=== PATIENT | female | born 1950 | race Caucasian/White ===

== ENCOUNTER 2017-10-20 15:21 | Outpatient (CLI) | payer OTHER ==
[2017-10-20 17:29] LABS: ALBUMIN 4.1 g/dL (3.2-5.5); ALBUMIN/GLOBULIN RATIO 1.4 (1.0-2.2); BILIRUBIN,TOTAL 0.9 mg/dL (0.2-1.0); CALCIUM 9.1 mg/dL (8.5-10.3); CREATININE 0.7 mg/dL (0.4-1.0); TOTAL PROTEIN 7.1 g/dL (6.7-8.2)
[2017-10-20 17:56] LABS: BASOPHILS % (AUTO) 0.7 %; EOSINOPHILS # (AUTO) 0.2 10^3/uL (0.0-0.7); EOSINOPHILS % (AUTO) 2.4 %; HGB - HEMOGLOBIN 13.8 g/dL (12.0-16.0); LYMPHOCYTES # (AUTO) 1.4 10^3/uL (1.5-3.5); LYMPHOCYTES % (AUTO) 19.9 %; MEAN CORPUSCULAR HEMOGLOBIN 29.5 pg (27.0-31.0); MEAN CORPUSCULAR HGB CONC 34.6 g/dL (32.0-36.0); MEAN CORPUSCULAR VOLUME 85.3 fL (81.0-99.0); MEAN PLATELET VOLUME 7.7 fL (7.9-10.8); MONOCYTES # (AUTO) 0.7 10^3/uL (0.0-1.0); MONOCYTES % (AUTO) 10.4 %; NEUTROPHILS # (AUTO) 4.7 10^3/uL (1.5-6.6); NEUTROPHILS % (AUTO) 66.6 %; PLT - PLATELET COUNT 183 10^3/uL (130-450); RED BLOOD COUNT 4.67 10^6/uL (4.20-5.40); WHITE BLOOD COUNT 7.1 x10^3/uL (4.8-10.8)
== END 2017-10-20 15:22 | disposition home or self-care (01) ==
LOC: LAB.F 15:21
PROVIDERS: ATTEND Family Medicine
DX: R19.7 Diarrhea, unspecified (principal)
CPT/HCPCS: 36415; 80053; 85025

== ENCOUNTER 2020-07-19 11:41 | Emergency (ER) | payer MEDICARE, OTHER ==
--- NOTE | 2020-07-19 12:19 | ED Physician Documentation ---
PD HPI HEENT - Stated complaint Stated Complaint: DIZZY - Chief complaint Chief Complaint: Heent - History obtained from History obtained from: Patient - History of Present Illness Timing - onset: How many days ago (2) Timing - duration: Days (2) Timing - details: Intermittant (has had 3 distinct episodes of vertigo with head movement (only moved slightly but abrupt to side). Each time occurred after taking a hot shower. Has had mild feeling of vertigo otherwise with movements. The distinct episodes were marked vertigo lasting 5-15 minutes. Better with head held still.) Location: Other (has had some mild congestion/runny nose. No feeling of ears plugged. No sinus pressure. [place] off balance when dizzy. No trouble walking once it stopped. Was able to manipulate mouse and keyboard normally while feeling dizzy. No focal weakness nor vision change.) Associated symptoms: Rhinorrhea. No: Fever, Facial swelling, Headache, Cough Similar symptoms before: Has not had sx before Recently seen: Not recently seen Review of Systems Constitutional: denies: Fever, Chills Eyes: denies: Decreased vision Ears: denies: Ear pain, Drainage/discharge Nose: reports: Rhinorrhea / runny nose. denies: Sinus pressure / pain Throat: denies: Sore throat Respiratory: denies: Cough Neurologic: denies: Focal weakness, Numbness, Near syncope, Altered mental status, Headache PD PAST MEDICAL HISTORY - Past Medical History Cardiovascular: None Respiratory: None Neuro: None Endocrine/Autoimmune: None - Present Medications Home Medications: Ambulatory Orders Medication Instructions Recorded Confirmed dexAMETHasone [Decadron] 4 mg PO DAILY #5 tablet 07/19/20 - Allergies Allergies/Adverse Reactions: Allergies Allergy/AdvReac Type Severity Reaction Status Date / Time No Known Drug Allergies Allergy Verified 07/19/20 11:57 PD ED PE NORMAL - Vitals Vital signs reviewed: Yes - General General: Alert and oriented X 3, No acute distress, Well developed/nourished - HEENT HEENT: PERRL, EOMI (mild nystagmus to the left. 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 ) Eye Opening: Spontaneous Motor: Obeys Commands Verbal: Oriented GCS Score: 15 Results - Vitals Vitals: Vital Signs - 24 hr 07/19/20 07/19/20 11:46 13:30 Temperature 36.7 C 36.7 C Heart Rate 66 64 Respiratory 15 16 Rate Blood Pressure 130/68 128/66 O2 Saturation 99 100 Oxygen O2 Source Room air PD MEDICAL DECISION MAKING - ED course Complexity details: considered differential (episodic vertigo triggered by small but abrupt head movement. Better rested. No cerebellar dysfunction otherwise. Has nystagmus to left. Seems peripheral. Likely otoliths but could be some labrynthitis/allergies.), d/w patient Departure - Departure Disposition: 01 Home, Self Care Clinical Impression: Positional vertigo Condition: Stable Record reviewed to determine appropriate education?: Yes Instructions: ED Vertigo Unspecified Prescriptions: dexAMETHasone [Decadron] 4 mg PO DAILY #5 tablet Comments: Your dizziness sounds related to inner ear problem. Most likely to have a small otolith that Ms. positions with the movement and causes the dizzy episode. However there may be some inflammation in the labyrinth instead with the symptoms just "below the radar" and happening at times. For that we can try dexamethasone anti-inflammatory daily for the next 4 to 5 days. Add meclizine if needed for symptomatic dizziness. Follow-up with your primary care/[facility] for follow-up with ENT specialist if your episodes have not resolved over the next several days. Discharge Date/Time: 07/19/20 13:30
[2020-07-19] MEDS ORDERED: CHERRY SYRUP 10 ML UDC PO ONE (13:08)
[2020-07-19] MEDS ORDERED: DEXAMETHASONE 10 MG/ML VIAL PO STA (13:08)
[2020-07-19 13:32] VITALS: BP 128/66
== END 2020-07-19 13:30 | disposition home or self-care (01) ==
LOC: ED 11:41
DX: H81.12 Benign paroxysmal vertigo, left ear (principal)
CPT/HCPCS: 99282; 99284; A9270

== ENCOUNTER 2021-07-16 09:40 | Emergency (ER) | payer MEDICARE ==
[2021-07-16 09:58] VITALS: BP 149/69
--- NOTE | 2021-07-16 12:45 | XRAY Report ---
PROCEDURE: Knee 4 View RT INDICATIONS: R knee pain, no injury TECHNIQUE: 4 views of the right knee(s) were acquired. COMPARISON: None. FINDINGS: Bones: No fractures or dislocations. No suspicious bony lesions. Tricompartment degenerative arthr itis, most notably in the medial compartment. There are somewhat bulky osteophytes medially. There is mild to moderate medial compartment joint space loss. Soft tissues: Moderate joint effusion. No suspicious soft tissue calcifications. IMPRESSION: 1. Moderate degenerative arthritis of the right knee. 2. Findings include a moderate knee joint effusion. Comment: If the patient is suspected of having undergone an internal derangement in addition to the d egenerative change, right knee MRI may be helpful. Reviewed by: Cecil Blue MD on 07/16/2021 12:44 PM PDT Approved by: Cecil Blue MD on 07/16/2021 12:44 PM PDT Station ID: [id number]
[2021-07-16] MEDS ORDERED: oxyCODONE 5 MG TABLET PO STA (13:06)
--- NOTE | 2021-07-16 13:08 | ED Physician Documentation ---
History of Present Illness - Stated complaint Stated Complaint: RT KNEE PX - Chief complaint Chief Complaint: Ext Problem - History obtained from History obtained from: Patient, Family - History of Present Illness Timing: Yesterday Pain level max: 8 Pain level now: 8 - Additonal information Additional information: Patient is a 70-year-old female who comes in for right knee pain. Worse with movement, better with rest. She states that been ongoing issue for several months, but usually the swelling goes down within a few hours. She states the swelling has persisted today. She has been told that she has a meniscus injury. 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 HEENT: Chronic vision loss Psych: None Musculoskeletal: None Derm: None - Past Surgical History Past Surgical History: No - Present Medications Home Medications: Ambulatory Orders Medication Instructions Recorded Confirmed dexAMETHasone [Decadron] 4 mg PO DAILY #5 tablet 07/19/20 Meloxicam [Mobic] 7.5 mg PO BID PRN #20 tablet 07/16/21 Oxycodone HCl/Acetaminophen 1 - 2 each PO Q6H PRN #14 tablet 07/16/21 [Percocet 5-325 mg Tablet] - Allergies Allergies/Adverse Reactions: Allergies Allergy/AdvReac Type Severity Reaction Status Date / Time Sulfa (Sulfonamide Allergy Unknown Verified 07/16/21 09:58 Antibiotics) - Social History Does the pt smoke?: Yes Smoking Status: Current every day smoker Does the pt drink ETOH?: No Does the pt have substance abuse?: No - Immunizations Immunizations are current?: Yes PD ED PE NORMAL - Vitals Vital signs reviewed: Yes - General General: Alert and oriented X 3, No acute distress, Well developed/nourished - HEENT HEENT: Moist mucous membranes - Neck Neck: Supple, no meningeal sign - Derm Derm: Warm and dry - Extremities Extremities: Other (Moderate effusion to the right knee. No bony tenderness. Limited range of motion secondary to pain. Neurovascularly intact. Unable to tolerate ligamentous testing.) - Neuro Neuro: Alert and oriented X 3 - Psych Psych: Normal mood, Normal affect Results - Vitals Vitals: Vital Signs - 24 hr 07/16/21 09:53 Temperature 36.6 C Heart Rate 69 Respiratory 16 Rate Blood Pressure 149/69 H O2 Saturation 99 Oxygen O2 Source Room air - Rads (name of study) Right knee x-ray Radiology: Final report received, EMP read contemporaneously, See rad report (Arthritis with moderate joint effusion) PD MEDICAL DECISION MAKING - ED course Complexity details: reviewed results, re-evaluated patient, considered differential, d/w patient ED course: 70-year-old female with a right knee moderate joint effusion and arthritis. She has her own crutches with her. Has a brace as well. We will have her continue these. Recommend MRI when the swelling has decreased. We will place on pain medication for home. Patient counseled regarding signs and symptoms for which I believe and urgent re-evaluation would be necessary. Patient with good understanding of and agreement to plan and is comfortable going home at this time This document was made in part using voice recognition software. While efforts are made to proofread this document, sound alike and grammatical errors may oc cur. Departure - Departure Disposition: Home, Self Care Clinical Impression: Knee effusion Qualifiers: Laterality: right Qualified Code(s): M25.461 - Effusion, right knee Condition: Good Instructions: ED Effusion Knee Follow-Up: your,doctor in 1 week [Other] Orthopedic Care [Provider Group] Prescriptions: Meloxicam [Mobic] 7.5 mg PO BID PRN #20 tablet PRN Reason: Pain Oxycodone HCl/Acetaminophen [Percocet 5-325 mg Tablet] 1 - 2 each PO Q6H PRN #14 tablet PRN Reason: pain Comments: Please follow-up with your doctor for further care. I would recommend that you see an orthopedist for further evaluation of your knee. You likely have a meniscus injury and given the effusion and increasing regularity, you likely h ave a meniscus tear that may benefit from arthroscopic surgery or other intervention with orthopedics. Your prescriptions were sent to the [facility] pharmacy. I am prescribing a short course of narcotic pain medication for you. These are potentially dangerous and addictive medications that should be used carefully. These medications may constipate you. Take an jjsq-hvu-rfuuhbo stool softener (docusate) twice daily with plenty of water while taking these medications. If you go 24 hours without a bowel movement, take bres-tfk-jpqocgo miralax, per package instructions. Do not drink or drive while taking these medications. If you received narcotic or sedating medications while in the emergency department, do not drive for 24 hours. Store this medication in a safe, secure place and out of reach of children. It is a violation of federal law to give or sell this medication to another person or to use in a manner other than prescribed. The ED will not refill narcotic prescriptions, including prescriptions lost or stolen. To dispose of unwanted medications: 1. [facility] [address] in [place] has a medication drop box. They accept prescription medications (in pill form) Tuesday through Tuesday 9:00 a.m. to 5:00 p.m. 2. The [employer] accepts prescription medications (in pill form only) for disposal year round. Call for more information. 3. Contact the [facility] for the next [facility] sponsored prescription drug collection event. , [phone], or [phone]; Discharge Date/Time: 07/16/21 13:15
== END 2021-07-16 13:15 | disposition home or self-care (01) ==
LOC: ED 09:40
DX: M25.461 Effusion, right knee (principal); F17.200 Nicotine dependence, unspecified, uncomplicated
CPT/HCPCS: 73564; 99283; 99284; A9270

== ENCOUNTER 2023-01-24 10:36 | Emergency (ER) | payer MEDICARE ==
[2023-01-24 10:53] VITALS: BP 142/74; O2SAT 100
--- NOTE | 2023-01-24 11:20 | XRAY Report ---
PROCEDURE: Chest 2 View X-Ray INDICATIONS: cough TECHNIQUE: 2 views of the chest were acquired. COMPARISON: None. FINDINGS: Surgical changes and devices: None. Lungs and pleura: No pleural effusions or pneumothorax. Lungs are clear. Mediastinum: Mediastinal contours appear normal. Heart size is normal. Bones and chest wall: No suspicious bony lesions. Overlying soft tissues appear unremarkable. Impression: No acute process. Reviewed by: Nataliia Begum MD on 01/24/2023 11:19 AM [facility] Approved by: Nataliia Begum MD on 01/24/2023 11:19 AM [facility] Station ID: [id number]
--- NOTE | 2023-01-24 12:03 | ED Physician Documentation ---
PD HPI URI - Stated complaint Stated Complaint: COUGH - Chief complaint Chief Complaint: Resp - History obtained from History obtained from: Patient - History of Present Illness Timing - onset: How many days ago Timing duration: Days (3) Timing details: Gradual onset Associated symptoms: Nasal congestion, Rhinorrhea, Dry cough. No: Fever, Chills Recently seen: Not recently seen - Additional information Additional information: Patient is a 72-year-old female who presents to the emergency department for cough for the past 3 days. No fevers. No chills. Has had rhinorrhea and congestion. The cough is mostly dry. No wheezing or dyspnea. She states that the cough is unrelieved by fuuv-zvw-rukaifk cough medication. Has taken 2 negative COVID tests. 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 HEENT: Chronic vision loss Psych: None Musculoskeletal: None Derm: None - Past Surgical History Past Surgical History: No - Present Medications Home Medications: Ambulatory Orders Medication Instructions Recorded Confirmed dexAMETHasone [Decadron] 4 mg PO DAILY #5 tablet 07/19/20 Meloxicam [Mobic] 7.5 mg PO BID PRN #20 tablet 07/16/21 Oxycodone HCl/Acetaminophen 1 - 2 each PO Q6H PRN #14 tablet 07/16/21 [Percocet 5-325 mg Tablet] Benzonatate [Tessalon] 200 mg PO TID PRN #30 cap 01/24/23 Cetirizine HCl/Pseudoephedrine 1 tab PO BID PRN #20 tab 01/24/23 [Zyrtec-D ER 5 mg-120 mg Tablet] Codeine Phosphate/Guaifenesin 5 ml PO Q6H PRN #60 ml 01/24/23 [Guaifen-Codeine 200-20 mg/10Ml] - Allergies Allergies/Adverse Reactions: Allergies Allergy/AdvReac Type Severity Reaction Status Date / Time Sulfa (Sulfonamide Allergy Unknown Verified 01/24/23 10:51 Antibiotics) - Social History Does the pt smoke?: Yes Smoking Status: Current every day smoker Does the pt drink ETOH?: No Does the pt have substance abuse?: No - Immunizations Immunizations are current?: Yes - POLST Patient has POLST: No PD ED PE NORMAL - Vitals Vital signs reviewed: Yes - General General: Alert and oriented X 3, No acute distress - HEENT HEENT: PERRL, Moist mucous membranes - Neck Neck: Supple, no meningeal sign - Cardiac Cardiac: RRR, Strong equal pulses - Respiratory Respiratory: No respiratory distress, Clear bilaterally - Abdomen Abdomen: Soft, Non tender, Non distended - Derm Derm: Warm and dry, No rash - Neuro Neuro: Alert and oriented X 3 - Psych Psych: Normal mood, Normal affect Results - Vitals Vitals: Vital Signs - 24 hr 01/24/23 10:49 Temperature 35.9 C L Heart Rate 75 Respiratory 20 Rate Blood Pressure 142/74 H O2 Saturation 100 Oxygen O2 Source Room air - Rads (name of study) cxr Relevant Findings:: Final report received, See rad report PD Medical Decision Making - ED course Complexity details: reviewed results, re-evaluated patient, considered differential, d/w patient ED course: Patient is well-appearing, nontoxic. Afebrile. No acute findings on chest x-ray. No evidence of pneumonia. Appears to be a viral upper respiratory illness. We will prescribe cough medication for home and continue supportive care. Will prescribe decongestants as well. No hypoxia. No respiratory distress. Lungs clear to auscultation bilaterally. Patient counseled regarding signs and symptoms for which I believe and urgent re-evaluation would be necessary. Patient with good understanding of and agreement to plan and is comfortable going home at this time This document was made in part using voice recognition software. While efforts are made to proofread this document, sound alike and grammatical errors may occur. Departure - Departure Disposition: Home, Self Care Clinical Impression: Upper respiratory tract infection Qualifiers: URI type: unspecified viral URI Qualified Code(s): J06.9 - Acute upper respiratory infection, unspecified Condition: Good Instructions: ED Viral Syndrome Follow-Up: NANCY VANN MD [Primary Care Provider] - Within 1 week Prescriptions: Codeine Phosphate/Guaifenesin [Guaifen-Codeine 200-20 mg/10Ml] 5 ml PO Q6H PRN #60 ml PRN Reason: Cough Benzonatate [Tessalon] 200 mg PO TID PRN #30 cap PRN Reason: Cough Cetirizine HCl/Pseudoephedrine [Zyrtec-D ER 5 mg-120 mg Tablet] 1 tab PO BID PRN #20 tab PRN Reason: nasal congestion Comments: Your prescriptions were sent to [facility] in [place]. You can use the medication as needed for cough and congestion. Please follow-up with your doctor as needed for further care. Your x-ray does not show any acute abnormalities today. This appears to be a viral illness. The typical cough lasted for approximately 2 to 3 weeks. I am prescribing a short course of narcotic pain medication for you. These are potentially dangerous and addictive medications that should be used carefully. These medications may constipate you. Take an enju-qhi-wqxxbvq stool softener (docusate) twice daily with plenty of water while taking these medications. If you go 24 hours without a bowel movement, take vwvx-wcg-uetgidp miralax, per package instructions. Do not drink or drive while taking these medications. If you received narcotic or sedating medications while in the emergency department, do not drive for 24 hours. Store this medication in a safe, secure place and out of reach of children. It is a violation of federal law to give or sell this medication to another person or to use in a manner other than prescribed. The ED will not refill narcotic prescriptions, including prescriptions lost or stolen. To dispose of unwanted medications: 1. [facility] [address] in [place] has a medication drop box. They accept prescription medications (in pill form) Tuesday through Tuesday 9:00 a.m. to 5:00 p.m. 2. [facility] [employer] [facility] accepts prescription medications (in pill form only) for disposal year round. Call for more inform ation. 3. Contact the [facility] for the next [facility] sponsored prescription drug collection event. , [phone], or [phone]; Forms: PCP List
== END 2023-01-24 12:13 | disposition home or self-care (01) ==
LOC: ED 10:36
DX: J06.9 Acute upper respiratory infection, unspecified (principal); F17.200 Nicotine dependence, unspecified, uncomplicated
CPT/HCPCS: 99283

== ENCOUNTER 2023-02-02 16:45 | Emergency (ER) | payer MEDICARE ==
[2023-02-02 16:59] VITALS: BP 129/73; O2SAT 100
--- NOTE | 2023-02-02 17:20 | ED Physician Documentation ---
PD HPI URI - Stated complaint Stated Complaint: SINUS PX - Chief complaint Chief Complaint: Heent - History obtained from History obtained from: Patient - Additional information Additional information: Patient is a 72-year-old female presenting for evaluation of sinus congestion which has been present for the past week and a half. Patient states she was seen here 10 days ago for a cough which is slightly improved but she still continues to have a cough mostly in the morning.She reports having green nasal discharge. No headache, no fever, no chest pain or shortness of air. Patient is unclear as to why she is still not feeling better. She has been taking medication she was prescribed and has occasionally tried a [place] pot although not very frequently. 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 HEENT: Chronic vision loss Psych: None Musculoskeletal: None Derm: None - Past Surgical History Past Surgical History: No - Present Medications Home Medications: Ambulatory Orders Medication Instructions Recorded Confirmed Meloxicam [Mobic] 7.5 mg PO BID PRN #20 tablet 07/16/21 Benzonatate [Tessalon] 200 mg PO TID PRN #30 cap 01/24/23 Amox/Clav 875/125 [Augmentin] 1 each PO Q12H #14 tablet 02/02/23 Levothyroxine Sodium [Tirosint] 44 mcg PO DAILY 02/02/23 - Allergies Allergies/Adverse Reactions: Allergies Allergy/AdvReac Type Severity Reaction Status Date / Time Sulfa (Sulfonamide Allergy Unknown Verified 02/02/23 16:54 Antibiotics) - Social History Does the pt smoke?: Yes Smoking Status: Current every day smoker Does the pt drink ETOH?: No Does the pt have substance abuse?: No - Immunizations Immunizations are current?: Yes - POLST Patient has POLST: No PD ED PE NORMAL - General General: Alert and oriented X 3, No acute distress, Well developed/nourished - HEENT HEENT: Atraumatic, Moist mucous membranes, Pharynx benign, Other (No significant tenderness over bilateral sinuses but does report feeling fullness in the left sinus, no overlying erythema) - Neck Neck: Supple, no meningeal sign - Cardiac Cardiac: RRR - Respiratory Respiratory: No respiratory distress, Clear bilaterally - Abdomen Abdomen: Soft, Non tender - Derm Derm: Warm and dry - Neuro Neuro: Normal speech Results - Vitals Vitals: Oxygen O2 Source Room air - Labs Labs: Laboratory Tests 02/02/23 16:58 Nasal Adenovirus (PCR) NOT DETECTED Nasal B. parapertussis DNA (PCR) NOT DETECTED Nasal Coronavir 229E PCR NOT DETECTED Nasal Coronavir HKU1 PCR NOT DETECTED Nasal Coronavir NL63 PCR NOT DETECTED Nasal Coronavir OC43 PCR NOT DETECTED Nasal Enterovir/Rhinovir PCR NOT DETECTED Nasal Influenza B PCR NOT DETECTED Nasal Influenza A PCR NOT DETECTED Nasal Parainfluen 1 PCR NOT DETECTED Nasal Parainfluen 2 PCR NOT DETECTED Nasal Parainfluen 3 PCR NOT DETECTED Nasal Parainfluen 4 PCR NOT DETECTED Nasal RSV (PCR) NOT DETECTED Nasal B.pertussis DNA PCR NOT DETECTED Nasal C.pneumoniae (PCR) NOT DETECTED [place] Human Metapneumo PCR NOT DETECTED Nasal M.pneumoniae (PCR) NOT DETECTED Nasal SARS-CoV-2 (PCR) NOT DETECTED PD Medical Decision Making - ED course ED course: Pt with URI symptoms x 10 days. No improvement with conservative measures in regards to nasal/sinus congestion. Lungs clear and VSS. Discussed options for treatment. Patient will continue with conservative measure for few more days but if no improvement will consider course of antibiotics for sinusitis. Pt advised on concerning symptoms to return for. Departure - Departure Disposition: 01 Home, Self Care Clinical Impression: Sinus congestion Condition: Stable Instructions: ED Sinusitis Abx Tx Prescriptions: Amox/Clav 875/125 [Augmentin] 1 each PO Q12H #14 tablet Comments: Your respiratory panel is pending. This will check for COVID, influenza, RSV and a number of other common cold viruses. We will notify you if it is positive for COVID. Otherwise you can check the patient portal for your results. You should quarantine from others until you know your COVID result. Please continue with acetaminophen or ibuprofen as needed for fevers and body aches, plenty of fluids/hydration and rest. Return to the ER with any worsening symptoms such as difficulty breathing or vomiting. We have discussed options for treatment of your sinus congestion. Please continue with trying saline rinses and sprays for the next few days. If your symptoms or not improving that I have sent a prescription for an antibiotic to [facility] in [place]. Forms: PCP List Discharge Date/Time: 02/02/23 18:07
[2023-02-02 18:00] LABS: B. PARAPERTUSSIS- RESP PCR PAN NOT DETECTED; B. PERTUSSIS- RESP PCR PANEL NOT DETECTED; C. PNEUMONIAE- RESP PCR PANEL NOT DETECTED; CORONAVIRUS 229E-RESP PCR NOT DETECTED; CORONAVIRUS HKU1-RESP PCR NOT DETECTED; CORONAVIRUS NL63-RESP PCR NOT DETECTED; CORONAVIRUS OC43-RESP PCR NOT DETECTED; HUMAN METAPNEUMOVIRUS NOT DETECTED; INFLUENZA A- RESP PCR PANEL NOT DETECTED; INFLUENZA B - RESP PCR PANEL NOT DETECTED; M. PNEUMONIAE- RESP PCR PANEL NOT DETECTED; PARAINFLUENZA VIRUS 1 NOT DETECTED; PARAINFLUENZA VIRUS 2 NOT DETECTED; PARAINFLUENZA VIRUS 3 NOT DETECTED; PARAINFLUENZA VIRUS 4 NOT DETECTED; RHINOVIRUS/ENTEROVIRUS NOT DETECTED; RSV- RESP PCR PANEL NOT DETECTED; SARS-CoV-2 -RESP PCR PANEL NOT DETECTED
== END 2023-02-02 18:07 | disposition home or self-care (01) ==
LOC: ED 16:45
DX: R09.81 Nasal congestion (principal); F17.200 Nicotine dependence, unspecified, uncomplicated; Z20.822 Contact with and (suspected) exposure to COVID-19
CPT/HCPCS: 87633; 99283

== ENCOUNTER 2023-09-24 09:42 | Emergency (ER) | payer MEDICARE ==
[2023-09-24 09:58] VITALS: BP 178/82; O2SAT 100
--- NOTE | 2023-09-24 10:36 | ED Physician Documentation ---
PD HPI CHEST PAIN - Stated complaint Stated Complaint: CENTER BACK PX - Chief complaint Chief Complaint: Back Pain - History obtained from History obtained from: Patient, Family - History of Present Illness Timing - onset: How many days ago (3) Timing - onset during: Other (tripped and grabbed with left arm strained posterior chest wall.) Timing - duration: Days (3) Timing - details: Abrupt onset, Still present Quality: Sharp, Pain Location: Left chest (posterior), Left shoulder/arm Radiation: Back Improved by: Rest Worsened by: Exertion, Inspiration, Movement, Palpation Associated symptoms: Shortness of air (with a spasm) Similar symptoms before: Has not had sx before - Additional information Additional information: Ekaterina Blackman is a 72-year-old female who caught herself with her left arm when she was falling on Tuesday. She strained her left chest wall and this hurts some then and she has had some episodes of pain since then but this morning early she developed severe pain when she rolled over in bed. She has pain in the left shoulder blade and below that and it will arrest her breathing. She has 6 out of 10 pain at rest and some intolerable pain with spasm. She has not had this happen to her previously. She has been taking 1 ibuprofen and 1 Tylenol for the pain. Review of Systems Constitutional: denies: Fever Eyes: denies: Decreased vision Ears: denies: Ear pain Nose: denies: Rhinorrhea / runny nose, Congestion Throat: denies: Sore throat Cardiac: reports: Chest pain / pressure. denies: Palpitations, Pedal edema, Calf pain Respiratory: denies: Dyspnea, Cough GI: denies: Abdominal Pain, Nausea, Vomiting, Constipation, Diarrhea : denies: Dysuria, Frequency PD PAST MEDICAL HISTORY - Past Medical History Cardiovascular: None Respiratory: None Neuro: None Endocrine/Autoimmune: HyPOthyroidism GI: None HAT BRUSHER MACHINE: None : None HEENT: Chronic vision loss Psych: None Musculoskeletal: None Derm: None - Past Surgical History Past Surgical History: No - Present Medications Home Medications: Ambulatory Orders Medication Instructions Recorded Confirmed Meloxicam [Mobic] 7.5 mg PO BID PRN #20 tablet 07/16/21 Benzonatate [Tessalon] 200 mg PO TID PRN #30 cap 01/24/23 Amox/Clav 875/125 [Augmentin] 1 each PO Q12H #14 tablet 02/02/23 Levothyroxine Sodium [Tirosint] 44 mcg PO DAILY 02/02/23 HYDROcod/ACETAM 5/325 [[facility] 5/325] 1 - 2 tablet PO Q6H PRN #14 tablet 09/24/23 - Allergies Allergies/Adverse Reactions: Allergies Allergy/AdvReac Type Severity Reaction Status Date / Time Sulfa (Sulfonamide Allergy Unknown Verified 09/24/23 09:54 Antibiotics) - Social History Does the pt smoke?: Yes Smoking Status: Current every day smoker Does the pt drink ETOH?: No Does the pt have substance abuse?: No - Immunizations Immunizations are current?: Yes - POLST Patient has POLST: No PD ED PE NORMAL - Vitals Vital signs reviewed: Yes (hypertensive ) - General General: Alert and oriented X 3, No acute distress, Well developed/nourished - HEENT HEENT: Atraumatic, PERRL, EOMI - Neck Neck: Supple, no meningeal sign, No bony TTP - Cardiac Cardiac: RRR, No murmur - Respiratory Respiratory: No respiratory distress, Clear bilaterally, Other (point tenderness is below the scapula on the left and along the rhomboids. ) - Abdomen Abdomen: Soft, Non tender - Back Back: No CVA TTP, No spinal TTP - Derm Derm: Normal color, Warm and dry, No rash - Extremities Extremities: No deformity, No edema - Neuro Neuro: Alert and oriented X 3, flower planter 2-12 intact, No motor deficit, No sensory deficit, Normal speech Eye Opening: Spontaneous Motor: Obeys Commands Verbal: Oriented GCS Score: 15 - Psych Psych: Normal mood, Normal affect Results - Vitals Vitals: Vital Signs - 24 hr 09/24/23 09:50 Temperature 36.1 C L Heart Rate 73 Respiratory 18 Rate Blood Pressure 178/82 H O2 Saturation 100 Oxygen O2 Source Room air - Rads (name of study) chest Relevant Findings:: Prelim report reviewed (Impression: No acute cardiopulmonary process.), EMP independent interpretation of test, See rad report PD Medical Decision Making - ED course Complexity details: reviewed results, re-evaluated patient, considered differential, d/w patient, d/w family ED course: 72-year-old female who caught herself with her left arm has pain in her left posterior chest. She is treated in the emergency department with dexamethasone and Toradol with improvement in her pain. She is expected to have a benign course. Looks like she pulled a muscle. Departure - Departure Disposition: 01 Home, Self Care Clinical Impression: Strain of left rhomboid muscle Condition: Stable Instructions: ED Spasm Back No Trauma, ED Myofascial Pain Syndrome Prescriptions: HYDROcod/ACETAM 5/325 [[facility] 5/325] 1 - 2 tablet PO Q6H PRN #14 tablet PRN Reason: Pain Comments: Ekaterina, it looks like you have strained a muscle on your chest wall and this can get inflamed after several days and causes significant pain. Especially if there is movement to the area that is sudden. We have given you a dose of dexamethasone today and we expect this to help the pain throughout the day. My recommendation for control of your pain is to either use ibuprofen up to 800 mg every 8 hours as needed for pain (always take this with food). For severe pain we have e-scribed some narcotic pain reliever to the [facility] in [place]. Discharge Date/Time: 09/24/23 11:58
[2023-09-24] MEDS: KETOROLAC 30 MG/ML VIAL IM STA (10:43)
[2023-09-24] MEDS: DEXAMETHASONE 10 MG/ML VIAL PO STA (10:43)
[2023-09-24] MEDS: CHERRY SYRUP 10 ML UDC PO ONE (10:43)
--- NOTE | 2023-09-24 11:12 | XRAY Report ---
PROCEDURE: Chest 2V INDICATIONS: rhomboid pain TECHNIQUE: 2 views of the chest were acquired. COMPARISON: 01/25/2024. FINDINGS: Surgical changes and devices: None. Lungs and pleura: No pleural effusions or pneumothorax. Lungs are clear. Mediastinum: Mediastinal contours appear normal. Heart size is normal. Bones and chest wall: No suspicious bony lesions. Overlying soft tissues appear unremarkable. IMPRESSION: No acute cardiopulmonary process. Reviewed by: Gonzales Diaz MD on 09/24/2023 11:11 AM PDT Approved by: Gonzales Diaz MD on 09/24/2023 11:11 AM PDT Station ID: [id number]
== END 2023-09-24 11:58 | disposition home or self-care (01) ==
LOC: ED 09:42
DX: S29.012A Strain of muscle and tendon of back wall of thorax, initial encounter (principal); W18.40XA Slipping, tripping and stumbling without falling, unspecified, initial encounter; E03.9 Hypothyroidism, unspecified
CPT/HCPCS: 71046; 96372; 99283; 99284; A9270